=== PATIENT | female | born 1950 | race Caucasian/White ===

== ENCOUNTER 2016-09-14 06:53 | Inpatient (IN) | payer BC ==
--- NOTE | 2016-09-06 13:02 | Rehab Joint Replacement Pre-Op ---
Rehab Joint Replacement Pre-Op - Pre-Op Visit Reviewed Items Scheduled for Post Op Visit: No Pre-Op Visit Comment: Pt has a 15 degree flexion contracture hamstrings. Mauricio Hose/Garment Measurement TKR - Knee High: No Mauricio Hose/Garment Measure THR - Thigh High: Yes Exercise Reviewed: Yes Stair Climbing: Yes Cane/Walker/Crutch Training: Yes Vend Equipment - Cane or Walker and OT Kit: N/A List of Venders in the Area: Yes Shower Chair Transfers: Yes Car Transfers: Yes Bed Transfers: Yes Medical History Forms Issued: No Functional Scale Forms Issued: No Additional Comments: Pt did very well with all pre-op education.
[~2016-09-14 06:53] MED LIST: CEFAZOLIN 2 Gram 50 ML IVPB ONE; CELECOXIB 100 MG CAPSULE PO ONE; FAMOTIDINE 20MG TABLET PO ONE; MECLIZINE 25 MG TABLET PO ONE; METOCLOPRAMIDE 10 MG TABLET PO ONE; VANCOMYCIN HCL 1,000 MG in 0.9 % SODIUM CHLORIDE 250ML 250 ML IVPB ONE
[2016-09-14 07:52] LABS: ABO GROUP B; ANTIBODY SCREEN NEGATIVE (NEGATIVE); RH TYPE POSITIVE
[2016-09-14] MEDS ORDERED: HYDROMORPHONE HCL 2 MG/ML VIAL IM PRN (10:55)
[2016-09-14] MEDS ORDERED: KETOROLAC 30 MG/ML VIAL IVP PRN ×2 (10:55)
[2016-09-14] MEDS ORDERED: DIPHENHYDRAMINE HCL 25 MG CAPSULE PO PRN (10:55)
[2016-09-14] MEDS ORDERED: AL HYDROX/MAG HYDROX 30ML UD PO PRN (10:55)
[2016-09-14] MEDS ORDERED: NALOXONE 0.4 MG/1 ML VIAL IVP PRN (10:55)
[2016-09-14] MEDS ORDERED: ACETAMINOPHEN 325 MG TAB PO PRN (10:55)
[2016-09-14] MEDS ORDERED: MAGNESIUM HYDROXIDE 30 ML UDC PO PRN (10:55)
[2016-09-14] MEDS ORDERED: ONDANSETRON HCL IV 4 MG/2 ML VIAL IVP PRN (10:55)
[2016-09-14] MEDS ORDERED: HYDROMORPHONE HCL 1 MG/ML CPJ IM PRN ×2 (10:55)
[2016-09-14] MEDS ORDERED: BISACODYL 10 MG SUPP RC PRN (10:55)
[2016-09-14] MEDS ORDERED: HYDROCODONE/APAP 10/325 TABLET PO PRN (10:55)
[2016-09-14] MEDS ORDERED: ZOLPIDEM TARTRATE 5 MG TABLET PO PRN (10:55)
[2016-09-14] MEDS ORDERED: POTASSIUM CHLORIDE/D5-0.9%NACL 20 MEQ in PREMIX D5 + NS 1000ML 1 BAG IV SCH (11:00)
[2016-09-14] MEDS ORDERED: TRANEXAMIC ACID 1,000 MG/10 ML ML IV ONE (14:00)
[2016-09-14] MEDS ORDERED: LIDOCAINE 2% MDV (20MG/ML) 20ML VIAL IV ONE (14:00)
[2016-09-14] MEDS ORDERED: BUPIVACAINE 0.5% W/EPI MPF 30 ML VIAL IVP ONE (14:00)
[2016-09-14] MEDS ORDERED: ONDANSETRON HCL IV 4 MG/2 ML VIAL IVP ONE (14:00)
[2016-09-14] MEDS ORDERED: PROPOFOL 10 MG/ML VIAL IV ONE (14:00)
[2016-09-14] MEDS ORDERED: EPHEDRINE SULFATE 50 MG/ML ML IV ONE (14:00)
[2016-09-14] MEDS ORDERED: DIPHENHYDRAMINE HCL IV 50 MG/ML VIAL IVP ONE (14:00)
[2016-09-14] MEDS ORDERED: MIDAZOLAM HCL 2MG/2ML VIAL IV ONE (14:00)
[2016-09-14] MEDS ORDERED: FENTANYL PF 100MCG/2ML VIAL IV ONE (14:00)
--- NOTE | 2016-09-14 15:33 | Operative Note ---
DATE OF SURGERY: 09/14/2016 PREOPERATIVE DIAGNOSIS: End-stage arthrosis, left knee. POSTOPERATIVE DIAGNOSIS: End-stage arthrosis, left knee. PROCEDURE: Cemented left total knee arthroplasty using [employer]hew Isaac II components, with a size 6 Oxinium femur, cruciate-retaining, a size 5 stem tibial base plate, 9 mm lipped highly crosslinked tibial insert and a 35 mm all plastic patella. Staff Surgeon: Shakeel Sargent M.D. Anesthesia: Spinal. PREPARATION: ChloraPrep. INDIVIDUAL CONSIDERATIONS: None. PROCEDURE: The patient was taken to the Operating Room, placed supine on the operation table. She had successful induction with spinal anesthetic. Her left lower extremity was prepped and draped in the usual fashion. The limb was elevated, tourniquet was inflated to 250 mmHg. The patient had a midline approach to the knee. Sharp dissection carried down through skin and subcutaneous tissue, small veins were coagulated with the Bovie. A medial arthrotomy was performed, patella was everted, knee was flexed. The patient had exposed bone in the medial, patella and femoral compartments. Fat pad was resected, ACL was sacrificed, provisional anterior meniscectomy was performed and the capsule was released from medial proximal tibia. The initial femoral airplane pilot hole was then made free hand. The intramedullary femoral cutting jig was placed. It was cut in 6.0 degrees of valgus and adjusted for rotation, secured with pins for a 10 mm resection. The initial transverse cut was then made. Skin guide was placed to the anterior and posterior airplane pilot holes. It was found that a size 6 would be appropriate. I needed to translate this anteriorly 2 mm to prevent it from being notched. The anterior and posterior cuts followed by chamfer cuts were made. osteophytes removed, and a size 6 trial was placed and found to be fit well. The tibia was brought forward and the remainder of the meniscal remnants removed with the Bovie. The extraarticular tibial cutting jig was placed. It was cut in neutral with a 3 degree AP slope. Care was taken to adjust for rotation and flexion using the extraarticular alignment guide and bony landmarks. It was set for a 9 mm resection keyed off the high lateral side and secured with pins. When cutting the tibia, care was taken to preserve the PCL insertion on the tibia. After making the cut and trimming osteophytes and adjusting for rotation, it was found that a size 5 would be appropriate. With the 9 mm trial and femoral trial, there was excellent motion and stability. Ligamentous balance, rotation and landmarks were thought to be normal. The femoral airplane pilot holes were impacted and the triflange tibial stamp was impacted and these trials were removed. The patient had a thick patella and roughly 9 mm of bone was removed using free hand technique with a saw. The 3 airplane pilot holes were then drilled for a 35 mm patella. The tourniquet was let down briefly to get posteriorly then placed back up again. The knee was then thoroughly irrigated with pulsatile Betadine and saline to remove any visual or palpable debris. Bony surfaces were then dried. A size 5 stem tibial base plate was cemented into place followed by impaction of the 9 mm lipped highly crosslinked tibial insert followed by cementing the size 6 Oxinium femur followed by cemented in the 35 mm patella. Implants surfaces were compressed, excess cement was removed. After the cement had set there was excellent motion and stability, ligamentous balance, rotation and patellofemoral tracking was normal and no lateral release was required. The tourniquet was let down. Hemostasis was obtained with the Bovie, again, irrigation to remove any remaining debris. The periosteum and soft tissues were then infiltrated with 0.5% Marcaine with epinephrine. The capsule was then closed with a running #2 Quill, subcu was closed with a running 0 Quill, skin was closed with running 2-0 Quill. 40 mL of solution containing a gram of tranexamic acid and 40 mL of saline was injected into the knee through a sterile 18-gauze needle and sterile bulky compressive Aquacel dry dressing was applied. The patient tolerated the procedures well. Needle and sponge counts were correct. Estimated blood loss was minimal and she was taken back to Recovery in good condition. There were no complications. MARVEL
--- NOTE | 2016-09-14 15:39 | Rehab Evaluation ---
Patient Information - Patient Information Diagnosis: OA with left TKA Ordered Treatment: PT Evaluate and Treat Status: Initial Evaluation Surgery: Yes (TKA left knee) Date of Surgery: 09/14/16 Past Medical/Surgical Hx: PAST MEDICAL/SURGICAL HISTORY Past Surgical History left knee scope x's 2 open left knee sx c section x's 2 lumpectomy left breast right ulnat tunnel release lasic tubal ligation tonsils PMH - Respiratory Hx Respiratory Disorders Yes Hx Bronchitis Yes: 1 month ago PMH - Cardiovascular Hx Cardiovascular Disorders No Exercise Tolerance Good PMH - Neuro Hx Neurological Disorders Yes Hx Headaches Yes: 2x's week Comment: blephaspasms gets quartley botox takes meds PMH - GI Hx Gastrointestinal Disorders No PMH - Hx Genitourinary Disorders No Hx Age of Menopause 51 PMH - Endocrine Hx Endocrine Disorders No PMH - Musculoskeletal Hx Musculoskeletal Disorders Yes Hx Arthritis Yes: left knee and hands Comment: left knee [pain PMH - Psych Hx Psychiatric Problems No PMH - Hematology/Oncology Hx Hematology/Oncology Yes Disorders Hx Cancer Yes: breast left withaxillary nodes Hx Radiation Therapy Yes Precautions: [place], Fall - Time With Patient Total Time Spent With Patient (Min): 30 Treatment Procedures: Detail (Patient seen bedside and doing quite well at this time; has feeling back in LES but not in much pain. Supine for exercises for knee with quad, ham sets, glut sets then heel slides, SLR with very slight assist, ankle pumps. Patient able to move supine to sit with very little assist with left LE, sit to stand with verbal cues, standard walker then ambulated with WBAT to bathroom, able to sit on commode and return to upright with good tolerance and technique. Ambulated in dhillon with standard walker 50 feet then back to room. Into bed with min assist of rails. Re-attached cryocuff , compressive stockings and placed tray table close with call light.) Subjective Information - Subjective Information Per Patient (Patient doing well, has house all ready for after surgery and has help at home.) Objective Data - Pain Pain Present: Yes Pain Scale Used: Numeric (1 - 10) (2-3) - Mental Status Patient Orientation: Oriented x3 - Visual Perception Appears within normal limits for therapeutic activities - ROM Within normal limits (Except left knee which is about 0 degrees extension to 60 degrees flexion.) - Strength/Tone Within normal limits (Except quads a little weak at 3/5) - Coordination Appears within normal limits for therapeutic activities (Patient very careful ambulating with standard walker and able to perform correctly.) - Bed Mobility Independent - Transfers Independent - Balance Balance Sitting: Good Balance Standing: Good - Sensation Deficit (Some numbness in buttocks yet but LES WNL) - Gait Detail (Ambulating with standard walker at doctor request and what patient was able to borrow. Safe with all gait techniques and transitions.) Therapy Assessment - Therapy Assessment Detail (Patient doing very well so far but just had surgery this am and still has some anesthesia numbness.) Patient Education - Patient Education Teaching Topic: Equipment Use, Exercise/Activity Response: Return Demonstration Teaching Method: Discussion, Demonstration Teaching Recipient: Patient Barriers To Learning: None Problem List - Problem List Physical Therapy Problem List: Detail (1. Some decreased mobility 2. Some decreased strength in left LE 3. Some impaired gait.) Goals - Goals Physical Therapy Goals: 1. Patient will be independent with transfers and bed mobility. 2. Patient will be safe ambulating community distances and with steps for safety to go home. Prognosis - Prognosis Good (Patient doing very well today: day of surgery. Should do well tomorrow and be able to be discharged home soon.) Plan - Plan Physical Therapy Plan: Patient will be seen BID tomorrow and if passes skills, may go home with family per doctor orders. If needs to stay another night, will assess if needs more PT treatment.
[2016-09-14] MEDS: HYDROCODONE/APAP 10/325 TABLET PO PRN ×2 (15:59→21:10)
[2016-09-14] MEDS: CEFAZOLIN 2 Gram 2 GM in DEXTROSE 1 BAG IVPB SCH (16:06)
[2016-09-14] MEDS: DOCUSATE SODIUM 100 MG CAPSULE PO SCH (21:21)
[2016-09-15] MEDS: CEFAZOLIN 2 Gram 2 GM in DEXTROSE 1 BAG IVPB SCH ×2 (00:14→08:21)
[2016-09-15] MEDS: HYDROCODONE/APAP 10/325 TABLET PO PRN ×4 (01:12→15:20)
[2016-09-15 06:41] LABS: HEMATOCRIT 31.9 % (35.0-47.0); HEMOGLOBIN 10.2 gm/dl (11.6-16.0)
[2016-09-15 07:12] LABS: ANION GAP 5.3 (7-16); BLOOD UREA NITROGEN 11 mg/dL (7-17); CARBON DIOXIDE 28.7 mmol/L (22-30); CREATININE 0.8 mg/dL (0.52-1.04); EST GLOMERULAR FILTRATION RATE > 60 ml/min; GLUCOSE,RANDOM 79 mg/dL (70-110)
[2016-09-15] MEDS ORDERED: FERROUS SULFATE 325 MG TAB PO SCH (10:00)
[2016-09-15] MEDS ORDERED: RIVAROXABAN 10 MG TABLET PO SCH (10:00)
[2016-09-15] MEDS ORDERED: TRIHEXYPHENIDYL 2 MG PO SCH (10:00)
[2016-09-15] MEDS: DOCUSATE SODIUM 100 MG CAPSULE PO SCH (10:09)
--- NOTE | 2016-09-15 10:32 | Rehab Evaluation ---
Patient Information - Patient Information Diagnosis: OA with left TKA Ordered Treatment: OT Evaluate and Treat Status: Initial Evaluation Surgery: Yes (TKA left knee) Date of Surgery: 09/14/16 Past Medical/Surgical Hx: PAST MEDICAL/SURGICAL HISTORY Past Surgical History left knee scope x's 2 open left knee sx c section x's 2 lumpectomy left breast right ulnat tunnel release lasic tubal ligation tonsils PMH - Respiratory Hx Respiratory Disorders Yes Hx Bronchitis Yes: 1 month ago PMH - Cardiovascular Hx Cardiovascular Disorders No Exercise Tolerance Good PMH - Neuro Hx Neurological Disorders Yes Hx Headaches Yes: 2x's week Comment: blephaspasms gets quartley botox takes meds PMH - GI Hx Gastrointestinal Disorders No PMH - Hx Genitourinary Disorders No Hx Age of Menopause 51 PMH - Endocrine Hx Endocrine Disorders No PMH - Musculoskeletal Hx Musculoskeletal Disorders Yes Hx Arthritis Yes: left knee and hands Comment: left knee [pain PMH - Psych Hx Psychiatric Problems No PMH - Hematology/Oncology Hx Hematology/Oncology Yes Disorders Hx Cancer Yes: breast left withaxillary nodes Hx Radiation Therapy Yes Premorbid Status: Detail (Pt lives with spouse in a 1 story house and 1 step at entrance without a handrailing. She has a walk in shower with grab bars and usually stands to shower. Her spouse will be completing all home mgmt, meal prep and laundry tasks after discharge.) Precautions: [place], Fall - Time With Patient Total Time Spent With Patient (Min): 25 Treatment Procedures: Detail (OT eval low complexity) Subjective Information - Subjective Information Per Patient Objective Data - Pain Pain Present: Yes (mild knee pain, reports feeling nauseated) - Mental Status Patient Orientation: Oriented x3 - Visual Perception Appears within normal limits for therapeutic activities - ROM Within normal limits (Sourav UE AROM WNL) - Strength/Tone Within normal limits (Sourav UE MMT WNL) - Coordination Appears within normal limits for therapeutic activities - Sensation Intact - ADL's/IADL's Detail (Reviewed LE dressing techniques and equipment that is available. Pt reports her spouse will be home to assist and she does not anticipate any difficulty with ADLs.) Therapy Assessment - Therapy Assessment Detail (Pt educated re: OT, adaptive equipment, she verbalizes learning.) Problem List - Problem List Physical Therapy Problem List: Detail (1. Some decreased mobility 2. Some decreased strength in left LE 3. Some impaired gait.) Occupational Therapy Problem List: Detail (No OT problems identified.) Goals - Goals Physical Therapy Goals: 1. Patient will be independent with transfers and bed mobility. 2. Patient will be safe ambulating community distances and with steps for safety to go home. Occupational Therapy Goals: No OT goals identified at this time. Prognosis - Prognosis Good Plan - Plan Physical Therapy Plan: Patient will be seen BID tomorrow and if passes skills, may go home with family per doctor orders. If needs to stay another night, will assess if needs more PT treatment. Occupational Therapy Plan: No further OT needed at this time. Thank you for this referral.
--- NOTE | 2016-09-15 11:39 | Physical Therapy Tx Note ---
Physical Therapy Tx Note - Treatment Note Tolerated: Good (Patient still sick and vomiting this am so assisted patient to bathroom after vomiting but let her rest otherwise. She still indicates that knee feels great.) Total Time Spent With Patient: 15 Physical Therapy Tx Note: Detail (Patient seen in room and still very nauseous so sat up independently, stood with standard walker then gave her a bravo to vomit into, emptied then she vomited again. Was able to assist patient to bathroom to use toilet with CGA only and standard walker (about 10 feet both ways), then back to sit on edge of bed. Will let patient rest and try steps this afternoon. Re-attached leg compressive stockings and cryocuff and left tray table and call light close.) Physical Therapy Problem List: Detail (1. Some decreased mobility 2. Some decreased strength in left LE 3. Some impaired gait.) Physical Therapy Goals: 1. Patient will be independent with transfers and bed mobility. 2. Patient will be safe ambulating community distances and with steps for safety to go home. Prognosis: Good (Knee doing great but nausea and vomiting yet. Will check off on stairs this afternoon.) Physical Therapy Plan: Patient will be seen BID tomorrow and if passes skills, may go home with family per doctor orders. If needs to stay another night, will assess if needs more PT treatment.
--- NOTE | 2016-09-15 14:49 | Physical Therapy Tx Note ---
Physical Therapy Tx Note - Treatment Note Tolerated: Good (Patient feeling much better now and ready to tackle stairs and get ready to go home. Able to ambulate entire distance of dhillon (about 100 feet ) times two then walk down three steps and back up with pivot turn with railing and walker (no rest break required). Reviewed exercises and patient doing well with same.) Total Time Spent With Patient: 30 Physical Therapy Tx Note: Detail (Patient seen in room, able to move supine to sit to stand independently then ambulated with standard walker to bathroom, used toilet and washed hands with no assistance needed. Ambulated 100 feet in dhillon then walked down three steps with rail and walker for support and CGA, pivot around and ambulated back up three steps with verbal cues only for assist. Patient ambulated safely with standard walker back to room (another 100 feet) then rested edge of bed. Assisted patient to get dressed and she moved independently to chair to wait for , call light and tray table near , nurse present to help with remainder of preparations for discharge.) Physical Therapy Problem List: Detail (1. Some decreased mobility 2. Some decreased strength in left LE 3. Some impaired gait.) Physical Therapy Goals: 1. Patient will be independent with transfers and bed mobility. 2. Patient will be safe ambulating community distances and with steps for safety to go home. Prognosis: Good (Very good. Patient has passed all skills and ready for discharge home with when he arrives. Nurse advised of same.) Physical Therapy Plan: Patient will be seen BID tomorrow and if passes skills, may go home with family per doctor orders. If needs to stay another night, will assess if needs more PT treatment.
--- NOTE | 2016-09-24 15:34 | Discharge Summary ---
DATE OF ADMISSION: 09/14/2016 DATE OF DISCHARGE: 09/15/2016 HISTORY: The patient is a delightful 66-year-old female who presents with end-stage arthrosis of her left knee. She is admitted for left total knee arthroplasty. Postoperatively she did extremely well. Her hospital course was basically unremarkable. She did very well the first postoperative day and wanted to go home. The plan is to discharge her home in the care of her family. Home PT and visiting nurse has been arranged. She will be given Xarelto followed by aspirin for DVT prophylaxis. She will be given [place] for pain. She will follow up in my office in 4 weeks. FINAL DIAGNOSIS AND PRIMARY DIAGNOSIS: End-stage arthrosis of her left knee. OPERATIONS AND PROCEDURES: Cementless left total knee arthroplasty. MARVEL
== END 2016-09-15 16:26 | disposition home or self-care (01) | DRG 470 ==
LOC: MEDSURG 06:53
PROVIDERS: ADMIT Orthopaedic Surgery; ATTEND Orthopaedic Surgery
PROC: 0SRD0J9 Replacement of Left Knee Joint with Synthetic Substitute, Cemented, Open Approach (ICD-10-PCS; principal; 2016-09-14 09:00)
DX: M17.12 Unilateral primary osteoarthritis, left knee (principal)
CPT/HCPCS: 80048; 85014; 85018; 86850; 86900; 86901; 97116; 97165; 97530; J1170; J1200; J2405; J3480